=== PATIENT | male | born 1960 | race Caucasian/White ===

== ENCOUNTER → 2016-10-18 | Outpatient (CLI) | payer OTHER | LOC: KOH-I 11:45 | DX: M54.2 Cervicalgia (principal); M25.569 Pain in unspecified knee; M54.9 Dorsalgia, unspecified; M79.643 Pain in unspecified hand; M47.812 Spondylosis without myelopathy or radiculopathy, cervical region; M47.814 Spondylosis without myelopathy or radiculopathy, thoracic region; M47.816 Spondylosis without myelopathy or radiculopathy, lumbar region; Z88.0 Allergy status to penicillin | CPT/HCPCS: 72050; 72070; 72110; 73130; 73564 ==